=== PATIENT | male | born 1960 | race Hispanic/Latino ===

== ENCOUNTER 2018-12-26 16:21 | Emergency (ER) | payer BC ==
[2018-12-26 16:46] LABS: #Eosinphils 0.3 thou/uL (0.0-0.7); #Lymphocytes 2.1 thou/uL (1.20-3.40); #Monocytes 1.1 thou/uL (0.11-0.59); #Neutrophils 9.3 thou/uL (1.40-6.50); %Basophils 0.1 % (0.0-1.0); %Lymphocytes 16.7 % (21.0-51.0); %Monocytes 8.5 % (0.0-10.0); %Neutrophils 72.6 % (42.0-75.0); Hemoglobin 14.1 g/dL (14.0-18.0); Mean Corpuscular HGB CONC 33.7 g/dL (32.0-36.0); Mean Corpuscular Hemoglobin 29.8 pg (27.0-31.0); Mean Corpuscular Volume 88.5 fL (78.0-98.0); Mean Platelet Volume 10.4 fL (7.4-10.4); Platelet Count 162 thou/uL (130-400); RBC Distribution Width 12.2 % (11.5-14.5); Red Blood Cell (RBC) Count 4.74 mill/uL (4.70-6.10); White Blood Cell (WBC) Count 12.8 thou/uL (4.8-10.8)
[2018-12-26 17:10] LABS: ALT (SGPT) 119 U/L (8-55); AST (SGOT) 75 U/L (5-34); Albumin 4.2 g/dL (3.5-5.0); Alkaline Phosphatase 85 U/L (40-150); Anion Gap 12 mmol/L (10-20); BUN (Urea Nitrogen) 23 mg/dL (8.4-25.7); Bilirubin, Total 0.4 mg/dL (0.2-1.2); Calc. Creatinine Clearance 0 mL/min (70-130); Calcium 9.7 mg/dL (7.8-10.44); Carbon Dioxide 25 mmol/L (22-29); Chloride 106 mmol/L (98-107); Estimated GFR-MDRD 46; Globulin 3.5 g/dL (2.4-3.5); Glucose 109 mg/dL (70-105); Potassium 3.9 mmol/L (3.5-5.1); Protein, Total 7.7 g/dL (6.0-8.3); Sodium 139 mmol/L (136-145)
[2018-12-26 17:23] LABS: Bilirubin Negative (Negative); Blood, Urine Moderate (Negative); Glucose, Urine (Dipstick) Negative (Negative); Leukocyte Small (Negative); Nitrite Negative (Negative); Protein, Urine (Dipstick) 30 mg/dL (Neg-Trace)
[2018-12-26 17:32] LABS: Clarity Clear (Clear)
[2018-12-26 17:33] LABS: Bacteria/HPF None Seen HPF (None Seen); RBC/HPF Greater than 50 HPF (0-3); Squamous Epithelial 0-3 HPF (0-3)
--- NOTE | 2018-12-26 19:30 | CT ---
CT ABDOMEN AND PELVIS WITHOUT CONTRAST: HISTORY: Kidney stone. Left-sided flank pain. FINDINGS: Absence of oral and IV contrast reduces the sensitivity of the exam, particularly for evaluation of s olid organs involved. The lung bases are clear. No free air or free fluid is seen in the abdomen or pelvis. No calcified gallstones are noted. A normal appearing appendix is present. There is left-sided hydroureteronephr osis secondary to a 4 mm calculus in the left distal ureter, just proximal to the UVJ. There are lef t-sided perinephric inflammatory change. No calculi are seen in the kidneys, right ureter, or the ur inary bladder. There are vascular calcifications without evidence of aneurysmal dilatation of the abdominal aorta. Degenerative changes are present in the spine. IMPRESSION: Obstructive uropathy secondary to a 4 mm distal left ureteral calculus. POS: ATUL
[2018-12-26] MEDS ORDERED: cefTRIAXone\\ROCEPHIN 1 GM VIAL ONE (20:11)
== END 2018-12-26 21:09 | disposition home or self-care (01) ==
LOC: ERS 16:21
DX: N13.2 Hydronephrosis with renal and ureteral calculous obstruction (principal); F17.210 Nicotine dependence, cigarettes, uncomplicated; E11.9 Type 2 diabetes mellitus without complications; I10 Essential (primary) hypertension; Z79.899 Other long term (current) drug therapy
CPT/HCPCS: 36415; 74176; 80053; 81003; 81015; 83690; 85025; 96361; 96365; J0696

== ENCOUNTER 2019-01-09 03:19 | Emergency (ER) | payer BC ==
[2019-01-09] MEDS ORDERED: Acetaminophen 325 MG TAB ONE (03:46)
[2019-01-09] MEDS ORDERED: Ketorolac Tromethamine 30 MG/ML VIAL ONE (03:46)
[2019-01-09 03:56] LABS: #Basophils 0.1 thou/uL (0.0-0.2); #Eosinphils 0.2 thou/uL (0.0-0.7); #Lymphocytes 2.5 thou/uL (1.20-3.40); #Neutrophils 7.7 thou/uL (1.40-6.50); %Basophils 0.5 % (0.0-1.0); %Eosinophils 1.9 % (0.0-10.0); %Lymphocytes 22.2 % (21.0-51.0); %Monocytes 8.3 % (0.0-10.0); %Neutrophils 67.1 % (42.0-75.0); Hemoglobin 13.6 g/dL (14.0-18.0); Mean Corpuscular HGB CONC 32.1 g/dL (32.0-36.0); Mean Corpuscular Hemoglobin 28.7 pg (27.0-31.0); Mean Corpuscular Volume 89.3 fL (78.0-98.0); Mean Platelet Volume 10.4 fL (7.4-10.4); Platelet Count 127 thou/uL (130-400); RBC Distribution Width 12.4 % (11.5-14.5); Red Blood Cell (RBC) Count 4.73 mill/uL (4.70-6.10); White Blood Cell (WBC) Count 11.4 thou/uL (4.8-10.8)
[2019-01-09 04:14] LABS: Bilirubin Negative (Negative); Blood, Urine 2+ (Negative); Clarity Clear (Clear); Glucose, Urine (Dipstick) Normal (Negative); Leukocyte 25 Leu/uL (Negative); Nitrite Negative (Negative); Protein, Urine (Dipstick) Negative (Neg-Trace); Squamous Epithelial 0-3 HPF (0-3); Urobilinogen Normal mg/dL (Less than 2)
[2019-01-09 04:15] LABS: Bacteria/HPF 1+ HPF (None Seen)
[2019-01-09 04:17] LABS: ALT (SGPT) 107 U/L (8-55); AST (SGOT) 68 U/L (5-34); Alkaline Phosphatase 82 U/L (40-150); Anion Gap 12 mmol/L (10-20); BUN (Urea Nitrogen) 15 mg/dL (8.4-25.7); Bilirubin, Total 0.5 mg/dL (0.2-1.2); Calc. Creatinine Clearance 0 mL/min (70-130); Calcium 9.3 mg/dL (7.8-10.44); Carbon Dioxide 26 mmol/L (22-29); Chloride 107 mmol/L (98-107); Estimated GFR-MDRD 65; Globulin 3.4 g/dL (2.4-3.5); Glucose 107 mg/dL (70-105); Potassium 3.7 mmol/L (3.5-5.1); Protein, Total 7.4 g/dL (6.0-8.3); Sodium 141 mmol/L (136-145)
--- NOTE | 2019-01-09 07:12 | CT ---
CT OF THE ABDOMEN AND PELVIS WITHOUT IV CONTRAST: INDICATION: History of left-sided flank pain. COMPARISON: Prior exam dated 12/26/2018. FINDINGS: There is a 3.7 mm calculus at the left UVJ causing moderate left hydronephrosis. There is a stable 3 mm calculus involving the inferior pole left kidney. The right renal collecting system is normal-ap pearing. There is persistent fatty infiltration of the liver. Unopacified pancreas, right adrenal gland, and spleen appear within normal limits. There is diffuse hypertrophy of the left adrenal gland which is stable. There are moderate calcifications involving the abdominopelvic vasculature. There is a normal appendix I the right lower quadrant. No acute osseous abnormality is evident. IMPRESSION: 1. 3.7 mm stone at the left UVJ causing moderate left hydronephrosis. This may be the same stone se en from the comparison exam dated 12/26/2018. The stone is now just beyond the left ureterovesical alyx ction within the bladder. Moderate left hydronephrosis persists. 2. Stable left nephrolithiasis. 3. Fatty liver. POS: JUNAID
== END 2019-01-09 05:45 | disposition home or self-care (01) ==
LOC: ERS 03:19
DX: N13.2 Hydronephrosis with renal and ureteral calculous obstruction (principal); I10 Essential (primary) hypertension; F17.210 Nicotine dependence, cigarettes, uncomplicated; R73.03 Prediabetes
CPT/HCPCS: 74176; 80053; 81003; 81015; 85025; 87086; 96361; 96374; J1885

== ENCOUNTER 2021-04-18 09:24 | Outpatient (CLI) | payer BC, OTHER | END 2021-04-18 09:25 | disposition home or self-care (01) | LOC: TBSIIMAG 09:24 | PROVIDERS: ATTEND Nurse Practitioner Family | DX: M47.26 Other spondylosis with radiculopathy, lumbar region (principal); M47.817 Spondylosis without myelopathy or radiculopathy, lumbosacral region | CPT/HCPCS: 72148 ==

== ENCOUNTER 2021-10-14 08:33 | Outpatient (CLI) | payer BC ==
[2021-10-14 10:04] LABS: Anion Gap 13 mmol/L (10-20); BUN (Urea Nitrogen) 19 mg/dL (8.4-25.7); Calc. Creatinine Clearance 0 mL/min (70-130); Calcium 9.4 mg/dL (7.8-10.44); Carbon Dioxide 25 mmol/L (22-29); Chloride 107 mmol/L (98-107); Glucose 109 mg/dL (70-105); Potassium 4.3 mmol/L (3.5-5.1); Sodium 141 mmol/L (136-145)
[2021-10-14 21:11] LABS: SARS-CoV-2 PCR by NAA Not Detected (NotDetected)
== END 2021-10-14 08:34 | disposition home or self-care (01) ==
LOC: LABBT 08:33
PROVIDERS: ATTEND Neurological Surgery
DX: Z01.818 Encounter for other preprocedural examination (principal); M54.16 Radiculopathy, lumbar region; Z20.822 Contact with and (suspected) exposure to COVID-19
CPT/HCPCS: 80048; 93005; 93010; U0003; U0005

== ENCOUNTER 2021-10-17 06:56 | Day surgery (SDC) | payer BC, OTHER ==
[2021-10-14 14:51] VITALS: BMI 45.6
[2021-10-17] MEDS ORDERED: EPINEPHrine 1 MG/ML AMP ONE (10:42)
[2021-10-17] MEDS ORDERED: Thrombin 5000 UNITS/5 ML VIAL ONE (10:42)
[2021-10-17] MEDS ORDERED: Bupivacaine PF 0.5% 30 ML VIAL ONE (10:42)
[2021-10-17] MEDS ORDERED: Midazolam HCl 2 mg/2 ml Vial ONE (10:52)
[2021-10-17] MEDS ORDERED: Fentanyl 250 MCG/5 ML VIAL ONE ×2 (10:52→13:06)
[2021-10-17] MEDS ORDERED: ceFAZolin (BATCH) 2 GM/100 ML BAG ONE ×2 (11:01→15:22)
[2021-10-17] MEDS ORDERED: Ondansetron PF 4 MG/2 ML Vial ONE (11:10)
[2021-10-17] MEDS ORDERED: Dexamethasone 20 MG/5 ML VIAL ONE (11:10)
[2021-10-17] MEDS ORDERED: Lidocaine 1% PF 5 ML VIAL ONE (11:10)
[2021-10-17] MEDS ORDERED: Glycopyrrolate 0.2 MG/ML 5 ML SYRINGE ONE (11:10)
[2021-10-17] MEDS ORDERED: PROPOFOL 200 MG/20 ML VIAL ONE (11:10)
[2021-10-17] MEDS ORDERED: Ketorolac Tromethamine 30 MG/ML VIAL ONE (11:10)
[2021-10-17] MEDS ORDERED: Rocuronium Bromide 10 MG/ML (10ML VIAL) ONE (11:10)
[2021-10-17] MEDS ORDERED: PHENYLEPHRINE-NS 100 MCG/ML 10 ML SYRINGE ONE (11:10)
[2021-10-17] MEDS ORDERED: SUGAMMADEX SODIUM 200 MG/2 ML VIAL ONE (12:43)
[2021-10-17] MEDS ORDERED: Tamsulosin HCl 0.4 MG CAP ONE (13:09)
[2021-10-17] MEDS ORDERED: HYDROmorphone 2 MG/ML VIAL ONE (13:42)
== END 2021-10-17 16:40 | disposition home or self-care (01) ==
LOC: SDC 06:56
PROVIDERS: ATTEND Neurological Surgery
PROC: 01NB0ZZ Release Lumbar Nerve, Open Approach (ICD-10-PCS; principal; 2021-10-17)
DX: M54.16 Radiculopathy, lumbar region (principal); I10 Essential (primary) hypertension; E11.9 Type 2 diabetes mellitus without complications; Z79.84 Long term (current) use of oral hypoglycemic drugs; Z79.899 Other long term (current) drug therapy; Z88.5 Allergy status to narcotic agent
CPT/HCPCS: 76000; J0171; J0690; J1100; J1170; J1885; J2250; J2405; J2704; J3010; S0020

== ENCOUNTER 2023-11-19 15:42 | Emergency (ER) | payer BC, OTHER, SELFPAY ==
[2023-11-19] MEDS ORDERED: cloNIDine 0.1 MG TAB ONE (16:03)
[2023-11-19] MEDS ORDERED: Oxymetazoline HCl 0.05% (30 ML BOT) ONE (16:04)
[2023-11-19 16:30] LABS: #Basophils 0.03 10x3/uL (0.0-0.2); %Basophils 0.4 % (0.0-1.0); %Eosinophils 3.3 % (0.0-10.0); %Lymphocytes 17.6 % (21.0-51.0); %Monocytes 7.9 % (0.0-10.0); %Neutrophils 70.6 % (42.0-75.0); Hematocrit 36.3 % (42.0-52.0); Hemoglobin 12.1 g/dL (14.0-18.0); Mean Corpuscular HGB CONC 33.3 g/dL (32.0-36.0); Mean Corpuscular Hemoglobin 28.1 pg (27.0-31.0); Mean Corpuscular Volume 84.4 fL (78.0-98.0); Mean Platelet Volume 11.4 fL (7.4-10.4); Platelet Count 159 10x3/uL (130-400); RBC Distribution Width 13.1 % (11.5-14.5)
[2023-11-19 16:46] LABS: INR-International Normal Ratio 1.1; Prothrombin Time 13.9 sec (12.0-14.7)
[2023-11-19 16:47] LABS: PTT 32.9 sec (22.9-36.1)
[2023-11-19 16:55] LABS: ALT (SGPT) 22 U/L (8-55); AST (SGOT) 22 U/L (5-34); Albumin 2.9 g/dL (3.4-4.8); Alkaline Phosphatase 167 U/L (40-110); Anion Gap 12 mmol/L (10-20); BUN (Urea Nitrogen) 22 mg/dL (8.4-25.7); Bilirubin, Total 0.4 mg/dL (0.2-1.2); Calc. Creatinine Clearance 0 mL/min (70-130); Carbon Dioxide 26 mmol/L (23-31); Chloride 107 mmol/L (98-107); Estimated GFR 99; Globulin 4.4 g/dL (2.4-3.5); Glucose 103 mg/dL (80-115); Potassium 3.9 mmol/L (3.5-5.1); Protein, Total 7.3 g/dL (5.8-8.1); Sodium 141 mmol/L (136-145)
== END 2023-11-19 17:45 | disposition home or self-care (01) ==
LOC: ERS 15:42
DX: R04.0 Epistaxis (principal); I10 Essential (primary) hypertension; F17.210 Nicotine dependence, cigarettes, uncomplicated; Z79.899 Other long term (current) drug therapy
CPT/HCPCS: 36415; 70486; 80053; 85025; 85610; 85730

== ENCOUNTER 2023-12-09 11:36 | Inpatient (IN) | payer OTHER ==
[2023-12-09 13:42] LABS: #Basophils 0.05 10x3/uL (0.0-0.2); %Basophils 0.5 % (0.0-1.0); %Eosinophils 4.1 % (0.0-10.0); %Lymphocytes 16.7 % (21.0-51.0); %Monocytes 7.9 % (0.0-10.0); %Neutrophils 70.6 % (42.0-75.0); Hematocrit 36.2 % (42.0-52.0); Hemoglobin 11.5 g/dL (14.0-18.0); Mean Corpuscular HGB CONC 31.8 g/dL (32.0-36.0); Mean Corpuscular Hemoglobin 27.4 pg (27.0-31.0); Mean Corpuscular Volume 86.2 fL (78.0-98.0); Mean Platelet Volume 10.7 fL (7.4-10.4); Platelet Count 257 10x3/uL (130-400); RBC Distribution Width 13.7 % (11.5-14.5)
[2023-12-09 14:03] LABS: ALT (SGPT) 20 U/L (8-55); AST (SGOT) 19 U/L (5-34); Albumin 2.8 g/dL (3.4-4.8); Alkaline Phosphatase 178 U/L (40-110); Anion Gap 14 mmol/L (10-20); BUN (Urea Nitrogen) 30 mg/dL (8.4-25.7); Bilirubin, Total 0.4 mg/dL (0.2-1.2); CRP,High Sensitivity (Inhouse) 11.42 mg/dL (< or = 0.5); Calc. Creatinine Clearance 0 mL/min (70-130); Calcium 9.4 mg/dL (7.8-10.44); Carbon Dioxide 22 mmol/L (23-31); Chloride 104 mmol/L (98-107); Estimated GFR 43; Globulin 4.8 g/dL (2.4-3.5); Glucose 94 mg/dL (80-115); INR-International Normal Ratio 1.1; PTT 38.1 sec (22.9-36.1); Potassium 4.4 mmol/L (3.5-5.1); Protein, Total 7.6 g/dL (5.8-8.1); Prothrombin Time 14.6 sec (12.0-14.7); Sodium 136 mmol/L (136-145)
[2023-12-09] MEDS ORDERED: HYDROcodone/Acetaminophen 5/325 mg Tablet ONE (14:08)
[2023-12-09 14:14] LABS: Bilirubin Negative (Negative); Blood, Urine 3+ (Negative); CAUTI Indications for Culture Pelvic or flank pain; Clarity Turbid (Clear); Glucose, Urine (Dipstick) Normal (Negative); Ketone, Urine Negative (Negative); Leukocyte 75 Leu/uL (Negative); Nitrite Negative (Negative); Protein, Urine (Dipstick) 200 mg/dL (Neg-Trace); RBC/HPF 21-50 HPF (0-3); Specific Gravity, Urine 1.022 (1.002-1.036); Squamous Epithelial 0-3 HPF (0-3); Urobilinogen Normal mg/dL (Less than 2)
[2023-12-09 14:15] LABS: Bacteria/HPF 1+ HPF (None Seen)
[2023-12-09 14:16] LABS: Urine Culture Reflex No No
[2023-12-09] MEDS ORDERED: cefTRIAXone (ROCEPHIN) 1 GM VIAL ONE (17:45)
[2023-12-09] MEDS ORDERED: Sodium Chloride 0.9% 100 ML ONE (17:45)
[2023-12-09] MEDS ORDERED: Dextrose 50% Abboject 50 ML SYRINGE SLOW IVP PRN (18:36)
[2023-12-09] MEDS ORDERED: Insulin Regular, Human 100 UNIT/ML 10 ML VIAL SC PRN ×2 (18:36)
[2023-12-09] MEDS ORDERED: Glucagon 1 MG/ML KIT IM PRN (18:36)
[2023-12-09] MEDS ORDERED: Acetaminophen 650 MG Suppository PR PRN (18:36)
[2023-12-09] MEDS ORDERED: Dextrose 5% in Water 1,000 ML IV PRN (18:36)
[2023-12-09] MEDS: Sodium Chloride 0.9% 1,000 ML IV SCH ×2 (19:53→19:54)
[2023-12-09] MEDS ORDERED: Ciprofloxacin 0.3% Ophth Soln 2.5 ml Bottle EA EYE SCH (21:00)
[2023-12-09] MEDS: HYDROcodone/Acetaminophen 5/325 mg Tablet PO PRN (21:12)
[2023-12-09] MEDS: Famotidine 20 MG TAB PO SCH (21:12)
[2023-12-09] MEDS: predniSONE 20 MG TAB PO SCH (21:12)
[2023-12-09] MEDS: Loratadine 10 MG TAB PO SCH (21:56)
[2023-12-10] MEDS: Ciprofloxacin 0.3% Ophth Soln 2.5 ml Bottle EA EYE SCH (00:36)
[2023-12-10] MEDS ORDERED: Artificial Tear Ophth Sol 15 ML BOT EA EYE PRN (01:29)
[2023-12-10 05:37] LABS: #Basophils 0.03 10x3/uL (0.0-0.2); %Basophils 0.3 % (0.0-1.0); %Eosinophils 0.9 % (0.0-10.0); %Lymphocytes 7.4 % (21.0-51.0); %Monocytes 2.6 % (0.0-10.0); %Neutrophils 88.5 % (42.0-75.0); Hematocrit 36.4 % (42.0-52.0); Hemoglobin 11.6 g/dL (14.0-18.0); Mean Corpuscular HGB CONC 31.9 g/dL (32.0-36.0); Mean Corpuscular Hemoglobin 26.8 pg (27.0-31.0); Mean Corpuscular Volume 84.1 fL (78.0-98.0); Mean Platelet Volume 10.7 fL (7.4-10.4); Platelet Count 239 10x3/uL (130-400); RBC Distribution Width 13.4 % (11.5-14.5); Red Blood Cell (RBC) Count 4.33 mill/uL (4.70-6.10)
[2023-12-10 05:51] LABS: Anion Gap 10 mmol/L (10-20); BUN (Urea Nitrogen) 29 mg/dL (8.4-25.7); Calc. Creatinine Clearance 0 mL/min (70-130); Calcium 9.2 mg/dL (7.8-10.44); Carbon Dioxide 20 mmol/L (23-31); Chloride 107 mmol/L (98-107); Estimated GFR 52; Glucose 122 mg/dL (80-115); Potassium 4.8 mmol/L (3.5-5.1); Sodium 132 mmol/L (136-145)
[2023-12-10 05:57] LABS: INR-International Normal Ratio 1.1; PTT 41.5 sec (22.9-36.1); Prothrombin Time 14.2 sec (12.0-14.7)
[2023-12-10] MEDS: predniSONE 20 MG TAB PO SCH (08:21)
[2023-12-10] MEDS: Loratadine 10 MG TAB PO SCH (08:22)
[2023-12-10 13:57] LABS: Reflex for Review? - EOS NO
[2023-12-10 14:53] LABS: Complement-C3 191 mg/dL (83-185); Complement-C4 57 mg/dL (15-53)
[2023-12-10] MEDS: Enoxaparin 40 MG (0.4 mL) SYRINGE SC SCH (21:04)
[2023-12-11 09:14] VITALS: BMI 43.9
[2023-12-11 14:36] LABS: Anion Gap 13 mmol/L (10-20); BUN (Urea Nitrogen) 32 mg/dL (8.4-25.7); Calc. Creatinine Clearance 99 mL/min (70-130); Calcium 9.6 mg/dL (7.8-10.44); Carbon Dioxide 22 mmol/L (23-31); Chloride 108 mmol/L (98-107); Estimated GFR 54; Glucose 132 mg/dL (80-115); Potassium 4.3 mmol/L (3.5-5.1); Sodium 139 mmol/L (136-145)
[2023-12-11] MEDS: Amlodipine 5 MG TAB PO SCH (20:44)
[2023-12-12] MEDS ORDERED: hydrALAZINE 20 MG/ML VIAL SLOW IVP PRN (09:04)
[2023-12-12] MEDS: hydrALAZINE 25 MG TAB PO SCH (10:00)
[2023-12-12] MEDS: Acetaminophen 325 MG TAB PO PRN (10:01)
[2023-12-13 00:32] VITALS: TEMP 98.2
[2023-12-13 08:32] VITALS: BP 170/93
[2023-12-13 09:00] LABS: #Basophils 0.07 10x3/uL (0.0-0.2); %Basophils 0.7 % (0.0-1.0); %Eosinophils 1.2 % (0.0-10.0); %Lymphocytes 21.3 % (21.0-51.0); %Monocytes 9.1 % (0.0-10.0); %Neutrophils 67.1 % (42.0-75.0); Hematocrit 35.7 % (42.0-52.0); Hemoglobin 11.4 g/dL (14.0-18.0); Mean Corpuscular HGB CONC 31.9 g/dL (32.0-36.0); Mean Corpuscular Hemoglobin 27.3 pg (27.0-31.0); Mean Corpuscular Volume 85.6 fL (78.0-98.0); Platelet Count 264 10x3/uL (130-400); RBC Distribution Width 13.5 % (11.5-14.5); Red Blood Cell (RBC) Count 4.17 mill/uL (4.70-6.10)
[2023-12-13 09:20] LABS: Anion Gap 11 mmol/L (10-20); BUN (Urea Nitrogen) 32 mg/dL (8.4-25.7); Calc. Creatinine Clearance 107 mL/min (70-130); Calcium 9.2 mg/dL (7.8-10.44); Carbon Dioxide 24 mmol/L (23-31); Chloride 109 mmol/L (98-107); Estimated GFR 60; Glucose 71 mg/dL (80-115); Potassium 4.1 mmol/L (3.5-5.1); Sodium 140 mmol/L (136-145)
[2023-12-13] MEDS ORDERED: hydrALAZINE 25 MG TAB PO SCH (15:00)
[2023-12-13] MEDS ORDERED: Amlodipine 10 MG TAB PO SCH (21:00)
== END 2023-12-13 12:57 | disposition home or self-care (01) | DRG 683 ==
LOC: ERS 11:36 → T4-A 17:55 → OBSVTOIN 12-10 14:37
PROVIDERS: ADMIT Family Medicine; ATTEND Hospitalist
DX: N17.9 Acute kidney failure, unspecified (principal); Z68.41 Body mass index [BMI] 40.0-44.9, adult; E11.9 Type 2 diabetes mellitus without complications; I10 Essential (primary) hypertension; E78.5 Hyperlipidemia, unspecified; F17.210 Nicotine dependence, cigarettes, uncomplicated; H10.9 Unspecified conjunctivitis; N12 Tubulo-interstitial nephritis, not specified as acute or chronic; E66.01 Morbid (severe) obesity due to excess calories; T37.0X5A Adverse effect of sulfonamides, initial encounter; L27.0 Generalized skin eruption due to drugs and medicaments taken internally; Z88.2 Allergy status to sulfonamides; Z79.84 Long term (current) use of oral hypoglycemic drugs; Z79.899 Other long term (current) drug therapy
CPT/HCPCS: 36415; 36416; 74176; 80048; 80053; 81001; 83010; 83605; 83615; 83880; 85025; 85046; 85384; 85610; 85730; 86060; 86141; 86160; 87040; 87086; 89190; 96365; J0696; J1650; J3490; J7050; J7512

== ENCOUNTER 2023-12-31 10:42 | Inpatient (IN) | payer OTHER ==
[2023-12-31 11:49] LABS: #Basophils Less than 0.03 10x3/uL (0.0-0.2); %Basophils 0.2 % (0.0-1.0); %Eosinophils 2.4 % (0.0-10.0); %Lymphocytes 17.5 % (21.0-51.0); %Monocytes 7.9 % (0.0-10.0); %Neutrophils 71.6 % (42.0-75.0); ALT (SGPT) 28 U/L (8-55); AST (SGOT) 15 U/L (5-34); Albumin 3.3 g/dL (3.4-4.8); Alkaline Phosphatase 99 U/L (40-110); Anion Gap 11 mmol/L (10-20); BUN (Urea Nitrogen) 56 mg/dL (8.4-25.7); Bilirubin, Total 0.6 mg/dL (0.2-1.2); Calc. Creatinine Clearance 0 mL/min (70-130); Carbon Dioxide 23 mmol/L (23-31); Chloride 112 mmol/L (98-107); Estimated GFR 29; Globulin 2.9 g/dL (2.4-3.5); Glucose 91 mg/dL (80-115); Hematocrit 32.9 % (42.0-52.0); Hemoglobin 10.3 g/dL (14.0-18.0); Mean Corpuscular HGB CONC 31.3 g/dL (32.0-36.0); Mean Corpuscular Hemoglobin 26.9 pg (27.0-31.0); Mean Corpuscular Volume 85.9 fL (78.0-98.0); Mean Platelet Volume 10.9 fL (7.4-10.4); Platelet Count 155 10x3/uL (130-400); Potassium 4.1 mmol/L (3.5-5.1); Protein, Total 6.2 g/dL (5.8-8.1); RBC Distribution Width 14.9 % (11.5-14.5); Red Blood Cell (RBC) Count 3.83 mill/uL (4.70-6.10); Sodium 142 mmol/L (136-145)
[2023-12-31] MEDS ORDERED: Ondansetron ODT 4 MG TAB PO PRN (12:30)
[2023-12-31] MEDS ORDERED: Senokot S 8.6-50 MG TAB PO PRN (12:30)
[2023-12-31] MEDS ORDERED: Calcium Carbonate 500 MG ChewTAB PO PRN (12:30)
[2023-12-31] MEDS ORDERED: Artificial Tear Ophth Sol 15 ML BOT EA EYE PRN (12:31)
[2023-12-31 12:57] LABS: Bacteria/HPF None Seen HPF (None Seen); Bilirubin Negative (Negative); Blood, Urine 3+ (Negative); CAUTI Indications for Culture Pelvic or flank pain; Clarity Clear (Clear); Glucose, Urine (Dipstick) Normal (Negative); Ketone, Urine Negative (Negative); Leukocyte 75 Leu/uL (Negative); Nitrite Negative (Negative); Protein, Urine (Dipstick) 300 mg/dL (Neg-Trace); RBC/HPF Greater than 50 HPF (0-3); Specific Gravity, Urine 1.012 (1.002-1.036); Squamous Epithelial 0-3 HPF (0-3); Urobilinogen Normal mg/dL (Less than 2); WBC/HPF 21-50 HPF (0-3); pH, Urine 6.5 (5.0-9.0)
[2023-12-31 13:10] LABS: Urine Culture Reflex Yes Yes; Yeast-Budding 1+ HPF (None Seen)
[2023-12-31] MEDS ORDERED: Hydrocortisone Sod Succ/PF 500 mg/4 ml Vial SLOW IVP SCH (13:45)
[2023-12-31 14:51] VITALS: BMI 44.6
[2023-12-31] MEDS: Lactated Ringer's 1,000 ML IV SCH (16:20)
[2023-12-31] MEDS: Fluconazole 100 MG TAB PO SCH (16:22)
[2023-12-31] MEDS: cefTRIAXone\\ROCEPHIN 1 GM in Sodium Chloride 0.9% 100 ML IVPB SCH (16:22)
[2023-12-31] MEDS: hydrALAZINE 25 MG TAB PO SCH (16:22)
[2023-12-31] MEDS: methylPREDNISolone Sod Succ 1 GM in Sodium Chloride 0.9% 100 ML IVPB SCH (18:42)
[2023-12-31] MEDS: Rosuvastatin 10 MG TAB PO SCH (22:07)
[2023-12-31] MEDS: NIFEdipine XL 60 MG ER.TAB PO SCH (22:07)
[2024-01-01 04:51] LABS: #Basophils Less than 0.03 10x3/uL (0.0-0.2); #Eosinphils Less than 0.03 10x3/uL (0.0-0.7); %Lymphocytes 9.4 % (21.0-51.0); %Monocytes 0.7 % (0.0-10.0); %Neutrophils 89.4 % (42.0-75.0); Hematocrit 32.9 % (42.0-52.0); Hemoglobin 10.5 g/dL (14.0-18.0); Mean Corpuscular HGB CONC 31.9 g/dL (32.0-36.0); Mean Corpuscular Hemoglobin 27.3 pg (27.0-31.0); Mean Corpuscular Volume 85.5 fL (78.0-98.0); Mean Platelet Volume 11.2 fL (7.4-10.4); Platelet Count 147 10x3/uL (130-400); RBC Distribution Width 14.6 % (11.5-14.5); Red Blood Cell (RBC) Count 3.85 mill/uL (4.70-6.10)
[2024-01-01 04:56] LABS: ALT (SGPT) 32 U/L (8-55); AST (SGOT) 20 U/L (5-34); Albumin 3.2 g/dL (3.4-4.8); Alkaline Phosphatase 112 U/L (40-110); Anion Gap 14 mmol/L (10-20); BUN (Urea Nitrogen) 53 mg/dL (8.4-25.7); Bilirubin, Total 0.4 mg/dL (0.2-1.2); Calc. Creatinine Clearance 58 mL/min (70-130); Calcium 9.2 mg/dL (7.8-10.44); Carbon Dioxide 20 mmol/L (23-31); Chloride 109 mmol/L (98-107); Estimated GFR 28; Globulin 3.1 g/dL (2.4-3.5); Glucose 164 mg/dL (80-115); Magnesium 1.9 mg/dL (1.6-2.6); Potassium 4.6 mmol/L (3.5-5.1); Protein, Total 6.3 g/dL (5.8-8.1); Sodium 138 mmol/L (136-145)
[2024-01-01] MEDS: Fluconazole 100 MG TAB PO SCH (08:47)
[2024-01-01] MEDS ORDERED: Fluconazole 100 MG TAB PO SCH (09:00)
[2024-01-01] MEDS ORDERED: Dextrose 50% Abboject 50 ML SYRINGE SLOW IVP PRN (15:15)
[2024-01-01] MEDS ORDERED: Glucagon 1 MG/ML KIT IM PRN (15:15)
[2024-01-01] MEDS ORDERED: Dextrose 5% in Water 1,000 ML IV PRN (15:15)
[2024-01-01] MEDS ORDERED: hydrALAZINE 20 MG/ML VIAL SLOW IVP PRN (15:19)
[2024-01-01] MEDS ORDERED: Labetalol HCl 100 MG/20 ML VIAL SLOW IVP PRN (15:22)
[2024-01-01] MEDS: Sodium Bicarbonate Tab 325 MG TAB PO SCH (21:16)
[2024-01-02 05:45] LABS: #Basophils Less than 0.03 10x3/uL (0.0-0.2); #Eosinphils Less than 0.03 10x3/uL (0.0-0.7); %Basophils 0.1 % (0.0-1.0); %Lymphocytes 5.1 % (21.0-51.0); %Monocytes 1.5 % (0.0-10.0); %Neutrophils 92.5 % (42.0-75.0); Hematocrit 30.5 % (42.0-52.0); Hemoglobin 9.9 g/dL (14.0-18.0); Mean Corpuscular HGB CONC 32.5 g/dL (32.0-36.0); Mean Corpuscular Hemoglobin 26.8 pg (27.0-31.0); Mean Corpuscular Volume 82.4 fL (78.0-98.0); Mean Platelet Volume 11.8 fL (7.4-10.4); Platelet Count 147 10x3/uL (130-400); RBC Distribution Width 14.6 % (11.5-14.5)
[2024-01-02 06:53] LABS: Anion Gap 13 mmol/L (10-20); BUN (Urea Nitrogen) 68 mg/dL (8.4-25.7); Calc. Creatinine Clearance 52 mL/min (70-130); Calcium 8.8 mg/dL (7.8-10.44); Carbon Dioxide 19 mmol/L (23-31); Chloride 110 mmol/L (98-107); Estimated GFR 24; Glucose 181 mg/dL (80-115); Potassium 4.3 mmol/L (3.5-5.1); Sodium 138 mmol/L (136-145)
[2024-01-02] MEDS: Insulin Lispro 100 UNIT/ML 10 ML VIAL SC PRN (12:45)
[2024-01-02] MEDS ORDERED: methylPREDNISolone Sod Succ 1 GM in Sodium Chloride 0.9% 100 ML IVPB SCH (17:00)
[2024-01-02] MEDS ORDERED: HumaLOG 300 UNITS/3 ML VIAL SC PRN ×2 (18:33)
[2024-01-02] MEDS: Insulin Glargine 30 UNITS/0.3 ML VIAL SC SCH (20:33)
[2024-01-03 05:08] LABS: #Basophils Less than 0.03 10x3/uL (0.0-0.2); #Eosinphils Less than 0.03 10x3/uL (0.0-0.7); %Lymphocytes 2.4 % (21.0-51.0); %Monocytes 1.3 % (0.0-10.0); %Neutrophils 94.6 % (42.0-75.0); Hematocrit 31.2 % (42.0-52.0); Hemoglobin 9.9 g/dL (14.0-18.0); Mean Corpuscular HGB CONC 31.7 g/dL (32.0-36.0); Mean Corpuscular Hemoglobin 27.3 pg (27.0-31.0); Mean Platelet Volume 11.9 fL (7.4-10.4); Platelet Count 149 10x3/uL (130-400); RBC Distribution Width 15.1 % (11.5-14.5); Red Blood Cell (RBC) Count 3.63 mill/uL (4.70-6.10)
[2024-01-03 05:17] LABS: Hemoglobin A1c 5.7 % (4.0-6.0)
[2024-01-03 05:23] LABS: Anion Gap 13 mmol/L (10-20); BUN (Urea Nitrogen) 77 mg/dL (8.4-25.7); Calc. Creatinine Clearance 48 mL/min (70-130); Calcium 8.8 mg/dL (7.8-10.44); Carbon Dioxide 19 mmol/L (23-31); Chloride 112 mmol/L (98-107); Estimated GFR 22; Glucose 203 mg/dL (80-115); Potassium 4.3 mmol/L (3.5-5.1); Sodium 140 mmol/L (136-145)
[2024-01-03] MEDS: Insulin Lispro 100 UNIT/ML 10 ML VIAL SC PRN ×2 (06:25→20:42)
[2024-01-04 08:56] VITALS: BP 167/74; TEMP 98.4
== END 2024-01-04 14:05 | disposition home or self-care (01) | DRG 699 ==
LOC: SUATTDRO 10:42 → ERS 10:42 → T4-B 14:25 → MSONC 20:01
PROVIDERS: ADMIT Internal Medicine; ATTEND Family Medicine
DX: N02.8 Recurrent and persistent hematuria with other morphologic changes (principal); Z68.41 Body mass index [BMI] 40.0-44.9, adult; I12.9 Hypertensive chronic kidney disease with stage 1 through stage 4 chronic kidney disease, or unspecified chronic kidney disease; E78.5 Hyperlipidemia, unspecified; I77.6 Arteritis, unspecified; E66.01 Morbid (severe) obesity due to excess calories; E11.22 Type 2 diabetes mellitus with diabetic chronic kidney disease; N18.9 Chronic kidney disease, unspecified; Z79.52 Long term (current) use of systemic steroids; Z88.2 Allergy status to sulfonamides; Z88.5 Allergy status to narcotic agent; Z79.899 Other long term (current) drug therapy
CPT/HCPCS: 36415; 36416; 80048; 80053; 81001; 83036; 83735; 85025; 87086; 99284; J0696; J1815; J2930; J3490; J7120

== ENCOUNTER 2024-02-09 08:50 | Day surgery (SDC) | payer OTHER ==
[2024-02-09] MEDS ORDERED: Acetaminophen 500 MG TAB ONE (09:51)
[2024-02-09] MEDS ORDERED: diphenhydrAMINE 50 MG/ML VIAL ONE (09:51)
[2024-02-09] MEDS: diphenhydrAMINE 50 MG/ML VIAL IVP SCH (09:52)
[2024-02-09] MEDS: Acetaminophen 500 MG TAB PO SCH (09:52)
[2024-02-09] MEDS: RITUXIMAB ABBS IVPB SCH (10:30)
[2024-02-09] MEDS: SODIUM CHLORIDE 0.9% IVPB SCH (10:30)
[2024-02-09 15:01] VITALS: TEMP 98.2
[2024-02-09 15:04] VITALS: BP 167/76
== END 2024-02-09 15:06 | disposition home or self-care (01) ==
LOC: ONC/OP 08:50
PROVIDERS: ATTEND Internal Medicine Nephrology
DX: N05.7 Unspecified nephritic syndrome with diffuse crescentic glomerulonephritis (principal); Z88.2 Allergy status to sulfonamides; Z88.5 Allergy status to narcotic agent
CPT/HCPCS: 96375; 96413; 96415; J1200; J7030; Q5115

== ENCOUNTER 2024-04-05 22:27 | Emergency (ER) | payer BC, OTHER ==
[2024-04-05 23:01] LABS: #Basophils Less than 0.03 10x3/uL (0.0-0.2); #Eosinophils Less than 0.03 10x3/uL (0.0-0.7); %Basophils 0.2 % (0.0-1.0); %Eosinophils 0.2 % (0.0-10.0); %Lymphocytes 18.7 % (21.0-51.0); %Monocytes 6.2 % (0.0-10.0); %Neutrophils 73.9 % (42.0-75.0); Hematocrit 37.5 % (42.0-52.0); Hemoglobin 12.1 g/dL (14.0-18.0); Mean Corpuscular HGB CONC 32.3 g/dL (32.0-36.0); Mean Corpuscular Hemoglobin 28.3 pg (27.0-31.0); Mean Corpuscular Volume 87.8 fL (78.0-98.0); Mean Platelet Volume 11.3 fL (7.4-10.4); Platelet Count 223 10x3/uL (130-400); RBC Distribution Width 14.6 % (11.5-14.5); Red Blood Cell (RBC) Count 4.27 mill/uL (4.70-6.10)
[2024-04-05 23:15] LABS: ALT (SGPT) 19 U/L (8-55); AST (SGOT) 18 U/L (5-34); Albumin 3.2 g/dL (3.4-4.8); Alkaline Phosphatase 81 U/L (40-110); Anion Gap 14 mmol/L (10-20); BUN (Urea Nitrogen) 43 mg/dL (8.4-25.7); Bilirubin, Total 0.3 mg/dL (0.2-1.2); Calc. Creatinine Clearance 0 mL/min (70-130); Calcium 9.4 mg/dL (7.8-10.44); Carbon Dioxide 24 mmol/L (23-31); Chloride 110 mmol/L (98-107); Estimated GFR 35; Globulin 3.2 g/dL (2.4-3.5); Glucose 116 mg/dL (80-115); Lipase 71 U/L (8-78); Potassium 4.1 mmol/L (3.5-5.1); Protein, Total 6.4 g/dL (5.8-8.1); Sodium 144 mmol/L (136-145)
[2024-04-05 23:21] LABS: Troponin I 0.014 ng/mL (< 0.028)
== END 2024-04-05 23:25 | disposition home or self-care (01) ==
LOC: ERS 22:27
DX: R07.89 Other chest pain (principal); I12.9 Hypertensive chronic kidney disease with stage 1 through stage 4 chronic kidney disease, or unspecified chronic kidney disease; E11.22 Type 2 diabetes mellitus with diabetic chronic kidney disease; N18.9 Chronic kidney disease, unspecified; Z79.899 Other long term (current) drug therapy
CPT/HCPCS: 71045; 80053; 83690; 83880; 84484; 85025; 93005

== ENCOUNTER 2025-04-19 01:38 | Emergency (ER) | payer OTHER ==
[2025-04-19 02:09] LABS: #Basophils 0.05 10x3/uL (0.0-0.2); #Eosinophils 0.25 10x3/uL (0.0-0.7); #Monocytes 0.70 10x3/uL (0.11-0.59); #Neutrophils 5.40 10x3/uL (1.40-6.50); %Basophils 0.6 % (0.0-1.0); %Eosinophils 2.9 % (0.0-10.0); %Lymphocytes 25.8 % (21.0-51.0); %Monocytes 8.1 % (0.0-10.0); %Neutrophils 62.4 % (42.0-75.0); Hematocrit 36.5 % (42.0-52.0); Hemoglobin 11.3 g/dL (14.0-18.0); Mean Corpuscular Hemoglobin 27.6 pg (27.0-31.0); Mean Corpuscular Volume 89.0 fL (78.0-98.0); Platelet Count 162 10x3/uL (130-400); Red Blood Cell (RBC) Count 4.10 mill/uL (4.70-6.10); White Blood Cell (WBC) Count 8.65 10x3/uL (4.8-10.8)
[2025-04-19 02:30] LABS: ALT (SGPT) 12 U/L (Less than 45); AST (SGOT) 19 U/L (11-34); Albumin 3.6 g/dL (3.1-4.5); Alkaline Phosphatase 123 U/L (40-110); Anion Gap 13 mmol/L (10-20); BUN (Urea Nitrogen) 25 mg/dL (8.4-25.7); Bilirubin, Total 0.4 mg/dL (0.3-1.2); Calc. Creatinine Clearance 0 mL/min (70-130); Calcium 9.7 mg/dL (7.8-10.44); Carbon Dioxide 25 mmol/L (23-31); Chloride 106 mmol/L (98-107); Globulin 3.3 g/dL (2.4-3.5); Glucose 105 mg/dL (80-115); Potassium 4.0 mmol/L (3.5-5.1); Sodium 140 mmol/L (136-145)
[2025-04-19] MEDS ORDERED: Acetaminophen 325 MG TAB ONE (03:22)
== END 2025-04-19 04:25 | disposition home or self-care (01) ==
LOC: ERS 01:38
DX: I10 Essential (primary) hypertension (principal); R51.9 Headache, unspecified; E11.9 Type 2 diabetes mellitus without complications; F17.210 Nicotine dependence, cigarettes, uncomplicated; Z79.82 Long term (current) use of aspirin; Z79.899 Other long term (current) drug therapy
CPT/HCPCS: 70450; 71045; 80053; 83880; 84484; 85025; 93005; 94760